=== PATIENT | female | born 1950 | race American Indian/Alaskan Native ===

== ENCOUNTER 2018-07-21 14:18 | Inpatient (IN) | payer MEDICARE ==
--- NOTE | 2018-07-21 17:04 | Emergency Department Report ---
ED General Adult HPI - General Chief complaint: Weakness Stated complaint: WEAKNESS Time Seen by Provider: 07/21/18 16:53 Source: patient Mode of arrival: Wheelchair Limitations: Physical Limitation, Other (patient is a poor historian) - History of Present Illness Initial comments: This is a 68-year-old female. The patient has a past medical history of hypertension, diabetes, and high cholesterol and stroke. The patient is brought to the hospital for generalized weakness and inability to walk. Apparently, the patient has not been able to walk for the past week as per her enclosed medical records. The patient has no recollection of this. She has no complaints. She therefore cannot describe exacerbating or relieving factors, radiation, or the qualitative nature of her symptoms. Patient's daughter stopped by the ER briefly, and did indicate that the patient has not been able to walk well for about the past week. -: days(s) Consistency: constant Improves with: none Worsens with: none Associated Symptoms: confusion, weakness - Related Data Home Medications Medication Instructions Recorded Confirmed Last Taken Amlodipine Besylate [Norvasc] 10 mg PO DAILY 04/12/18 04/12/18 Unknown AtorvaSTATin [Lipitor] 80 mg PO DAILY 04/12/18 04/12/18 Unknown Lisinopril [Zestril TAB] 40 mg PO QDAY 04/12/18 04/12/18 Unknown Pantoprazole Sodium 40 mg PO QAM 04/12/18 04/12/18 Unknown metFORMIN [Glucophage] 500 mg PO BID 04/12/18 04/12/18 Unknown Previous Rx's Medication Instructions Recorded Last Taken Type Clopidogrel [Plavix] 75 mg PO QDAY #30 tablet 04/18/18 Unknown Rx hydrALAZINE [Apresoline TAB] 10 mg PO Q8HR tablet 04/18/18 Unknown Rx Allergies Allergy/AdvReac Type Severity Reaction Status Date / Time No Known Allergies Allergy Verified 04/13/18 01:58 ED Review of Systems ROS: Stated complaint: WEAKNESS Other details as noted in HPI Comment: Unobtainable due to pts medical conditions ED Past Medical Hx - Past Medical History Previous Medical History?: Yes Hx Hypertension: Yes Hx CVA: Yes Hx Diabetes: Yes Hx GERD: Yes Hx Dementia: Yes - Surgical History Past Surgical History?: No Additional Surgical History: UNSURE - Social History Smoking Status: Unknown if ever smoked - Medications Home Medications: Home Medications Medication Instructions Recorded Confirmed Last Taken Type Amlodipine Besylate [Norvasc] 10 mg PO DAILY 04/12/18 04/12/18 Unknown History AtorvaSTATin [Lipitor] 80 mg PO DAILY 04/12/18 04/12/18 Unknown History Lisinopril [Zestril TAB] 40 mg PO QDAY 04/12/18 04/12/18 Unknown History Pantoprazole Sodium 40 mg PO QAM 04/12/18 04/12/18 Unknown History metFORMIN [Glucophage] 500 mg PO BID 04/12/18 04/12/18 Unknown History Clopidogrel [Plavix] 75 mg PO QDAY #30 tablet 04/18/18 Unknown Rx hydrALAZINE [Apresoline TAB] 10 mg PO Q8HR tablet 04/18/18 Unknown Rx ED Physical Exam - General Limitations: Physical Limitation, Other (patient is a poor historian. Patient has no recollection of why she is in the emergency department) General appearance: alert, in no apparent distress - Head Head exam: Present: atraumatic, normocephalic - Eye Eye exam: Present: normal appearance, EOMI. Absent: nystagmus - ENT ENT exam: Present: normal exam, normal orophraynx, mucous membranes moist, normal external ear exam - Neck Neck exam: Present: normal inspection, full ROM. Absent: tenderness, meningismus - Respiratory Respiratory exam: Present: normal lung sounds bilaterally. Absent: respiratory distress, chest wall tenderness - Cardiovascular Cardiovascular Exam: Present: regular rate, normal rhythm, normal heart sounds. Absent: bradycardia, tachycardia, irregular rhythm, systolic murmur, diastolic murmur, rubs, gallop - GI/Abdominal GI/Abdominal exam: Present: soft. Absent: distended, tenderness, guarding, rebound, rigid, pulsatile mass - Extremities Exam Extremities exam: Present: normal inspection, full ROM, normal capillary refill , other (2+ pulses noted in the bilateral upper, lower extremities. Compartments soft. No long bony tenderness. The pelvis is stable.). Absent: pedal edema, joint swelling, calf tenderness - Back Exam Back exam: Present: normal inspection, full ROM. Absent: tenderness, CVA tenderness (R), paraspinal tenderness, vertebral tenderness - Neurological Exam Neurological exam: Present: alert, other (Extraocular movements intact. Tongue midline. No facial droop. Facial sensation intact to light touch in the V1, V2 , V3 distribution bilaterally. 5 and 5 strength in 4 extremities.. Sensation is intact to light touch in 4 extremities.). Absent: abnormal gait (patient is unable to walk), motor sensory deficit - Psychiatric Psychiatric exam: Present: normal affect, normal mood - Skin Skin exam: Present: warm, dry, intact, normal color. Absent: rash ED Course Vital Signs 07/21/18 07/21/18 07/21/18 14:45 18:33 19:37 Temperature 98.7 F 98.1 F Pulse Rate 94 H 94 H Respiratory 18 17 18 Rate Blood Pressure 154/85 Blood Pressure 156/91 [Right] O2 Sat by Pulse 96 99 Oximetry - Reevaluation(s) Reevaluation #1: 07/21/18 19:39 Dr. England has accepted the patient to the medical service. ED Medical Decision Making - Lab Data Result diagrams: 07/21/18 17:13 07/21/18 17:13 Vital Signs 07/21/18 07/21/18 14:45 18:33 Temperature 98.7 F Pulse Rate 94 H Respiratory 18 17 Rate Blood Pressure 154/85 O2 Sat by Pulse 96 Oximetry Lab Results 07/21/18 07/21/18 07/21/18 Range/Units 17:13 17:13 17:13 WBC 10.2 (4.5-11.0) K/mm3 RBC 4.64 (3.65-5.03) M/mm3 Hgb 14.0 (10.1-14.3) gm/dl Hct 41.3 (30.3-42.9) % MCV 89 (79-97) fl MCH 30 (28-32) pg MCHC 34 (30-34) % RDW 14.2 (13.2-15.2) % Plt Count 178 (140-440) K/mm3 Sodium 138 (137-145) mmol/L Potassium 4.3 (3.6-5.0) mmol/L Chloride 103.5 (98-107) mmol/L Carbon Dioxide 19 L (22-30) mmol/L Anion Gap 20 mmol/L BUN 21 H (7-17) mg/dL Creatinine 0.6 L (0.7-1.2) mg/dL Estimated GFR > 60 ml/min BUN/Creatinine Ratio 35 % Glucose 201 H (65-100) mg/dL Calcium 8.9 (8.4-10.2) mg/dL Magnesium 1.90 (1.7-2.3) mg/dL Total Creatine Kinase 255 H (30-135) units/L Urine Color (Yellow) Urine Turbidity (Clear) Urine pH (5.0-7.0) Ur Specific [place] (1.003-1.030) Urine Protein (Negative) mg/dL Urine Glucose (UA) (Negative) mg/dL Urine Ketones (Negative) mg/dL Urine Blood (Negative) Urine Nitrite (Negative) Urine Bilirubin (Negative) Urine Urobilinogen (<2.0) mg/dL Ur Leukocyte Esterase (Negative) Urine WBC (Auto) (0.0-6.0) /HPF Urine RBC (Auto) (0.0-6.0) /HPF Urine Bacteria (Auto) (Negative) /HPF Urine WBC Clumps /HPF Urine Mucus /HPF 07/21/18 Range/Units 18:00 WBC (4.5-11.0) K/mm3 RBC (3.65-5.03) M/mm3 Hgb (10.1-14.3) gm/dl Hct (30.3-42.9) % MCV (79-97) fl MCH (28-32) pg MCHC (30-34) % RDW (13.2-15.2) % Plt Count (140-440) K/mm3 Sodium (137-145) mmol/L Potassium (3.6-5.0) mmol/L Chloride (98-107) mmol/L Carbon Dioxide (22-30) mmol/L Anion Gap mmol/L BUN (7-17) mg/dL Creatinine (0.7-1.2) mg/dL Estimated GFR ml/min BUN/Creatinine Ratio % Glucose (65-100) mg/dL Calcium (8.4-10.2) mg/dL Magnesium (1.7-2.3) mg/dL Total Creatine Kinase (30-135) units/L Urine Color Yellow (Yellow) Urine Turbidity Turbid (Clear) Urine pH 5.0 (5.0-7.0) Ur Specific [place] 1.021 (1.003-1.030) Urine Protein 100 mg/dl (Negative) mg/dL Urine Glucose (UA) Neg (Negative) mg/dL Urine Ketones Tr (Negative) mg/dL Urine Blood Mod (Negative) Urine Nitrite Pos (Negative) Urine Bilirubin Neg (Negative) Urine Urobilinogen < 2.0 (<2.0) mg/dL Ur Leukocyte Esterase Lg (Negative) Urine WBC (Auto) > 182.0 H (0.0-6.0) /HPF Urine RBC (Auto) 55.0 (0.0-6.0) /HPF Urine Bacteria (Auto) 2+ (Negative) /HPF Urine WBC Clumps 3+ /HPF Urine Mucus 3+ /HPF - Radiology Data Radiology results: report reviewed, image reviewed [facility] [address] [place] [address] Cat Scan Report Signed Patient: JODI COBURN MR#: [id number] : 1950 Acct:[id number] Age/Sex: 68 / F ADM Date: 07/21/18 Loc: ED Attending Dr: Ordering Physician: HUONG TORO MD Date of Service: 07/21/18 Procedure(s): CT head/brain wo con Accession Number(s): [id number] cc: HUONG TORO MD FINAL REPORT EXAM: CT HEAD/BRAIN WO CON HISTORY: weakness TECHNIQUE: 2.5 millimeter axial images from the skullbase to the vertex. Comparison: MRI brain dated April 14, [address] dated April 12, 2018. FINDINGS: The previously demonstrated acute infarcts in the left frontal, temporal, parietal occipital lobes on the study of April 14, 2018 are now chronic in appearance. Again noted are the chronic infarcts in the left basal ganglia and right cerebellum.. There has been interval development of decreased density in the right frontal lobe cortex and subcortical white matter in the parafalcine region and in the genu and anterior body of the corpus callosum. There appears to be a mild degree of mass effect on the adjacent brain suggestive of an acute or subacute infarct. There is no evidence of intracranial hemorrhage or significant mass effect. Ventricular size is concordant with the degree of atrophy. Again noted is the enlargement of the sella which is largely CSF filled. The visualized portions of the orbits, paranasal and mastoid sinuses are unremarkable. There is no evidence of fracture. IMPRESSION: 1. Interval development of low attenuation in the right frontal lobe cortex and subcortical white matter in the parafalcine region and in the genu and anterior body of the corpus callosum. This is consistent with the appearance of an infarct, possibly acute or subacute. MRI brain may be helpful for further evaluation. 2. Chronic infarct left frontal, temporal, parietal and occipital lobes, left basal ganglia and right cerebellum. Transcribed By: ED Dictated By: JAKE GARCIA MD Electronically Authenticated By: JAKE GARCIA MD Signed Date/Time: 07/21/18 9767 - Medical Decision Making Differential diagnosis, including but not limited to: Stroke, debility, urinary tract infection, deconditioning Assessment and plan: 68-year-old female with weakness and difficulty walking for one week. She has no indication for TPA as we do not have exact onset of symptoms. Furthermore, as symptoms by history have been present for greater than 24 hours, she would not benefit from emergent endovascular intervention, and to stay for not require emergent CT angiogram of the head and neck. A noncontrast CT scan of the brain suggested an acute to subacute infarct. Urinalysis suggested urinary tract infection. Patient will require admission to the hospital. Hospital physician was paged to arrange admission. Critical care attestation.: If time is entered above; I have spent that time in minutes in the direct care of this critically ill patient, excluding procedure time. ED Disposition Clinical Impression: CVA (cerebral vascular accident) Qualifiers: CVA mechanism: other Qualified Code(s): I63.8 - Other cerebral infarction UTI (urinary tract infection) Qualifiers: Urinary tract infection type: acute cystitis Hematuria presence: without hematuria Qualified Code(s): N30.00 - Acute cystitis without hematuria Disposition: OP ADMIT IP TO THIS HOSP Is pt being admited?: Yes Does the pt Need Aspirin: Yes Condition: Good Referrals: PRIMARY CARE, [Primary Care Provider] - 3-5 Days - Assessment Assessment Interval: Baseline - Level of Consciousness 1a. Level of Consciousness: not alert, arousable - LOC Questions 1b. LOC Questions: answers 1 question correctly - LOC Command 1c. LOC Commands: performs tasks correctly - Best Gaze 2. Best Gaze: normal - Visual 3. Visual: no visual loss - Facial Palsy 4. Facial Palsy: normal symmetrical movement - Motor Arm 5b. Motor Arm Right: no drift 5a. Motor Arm Left: no drift - Motor Leg 6a. Motor Leg Left: drift 6b. Motor Leg Right: drift - Limb Ataxia 7. Limb Ataxia: absent - Sensory 8. Sensory: normal - Best Language 9. Best Language: no aphasia - Dysarthria 10. Dysarthria: normal - Extinction and Inattention 11. Extinction/Inattention: no abnormality - Scoring Total Score: 4 Stroke Severity: Minor Stroke
[2018-07-21 17:40] LABS: Hematocrit 41.3 % (30.3-42.9); Mean Corpuscular HGB Conc 34 % (30-34); Mean Corpuscular Hemoglobin 30 pg (28-32); Mean Corpuscular Volume 89 fl (79-97); Platelet Count 178 K/mm3 (140-440); Red Blood Count 4.64 M/mm3 (3.65-5.03); Red Cell Distribution Width 14.2 % (13.2-15.2)
--- NOTE | 2018-07-21 17:42 | Cat Scan Report ---
FINAL REPORT EXAM: CT HEAD/BRAIN WO CON HISTORY: weakness TECHNIQUE: 2.5 millimeter axial images from the skullbase to the vertex. Comparison: MRI brain dated April 14, [address] dated April 12, 2018. FINDINGS: The previously demonstrated acute infarcts in the left frontal, temporal, parietal occipital lobes on the study of April 14, 2018 are now chronic in appearance. Again noted are the chronic infarcts in the left basal ganglia and right cerebellum.. There has been interval development of decreased density in the right frontal lobe cortex and subcortical white matter in the parafalcine region and in the genu and anterior body of the corpus callosum. There appears to be a mild degree of mass effect on the adjacent brain suggestive of an acute or subacute infarct. There is no evidence of intracranial hemorrhage or significant mass effect. Ventricular size is concordant with the degree of atrophy. Again noted is the enlargement of the sella which is largely CSF filled. The visualized portions of the orbits, paranasal and mastoid sinuses are unremarkable. There is no evidence of fracture. IMPRESSION: 1. Interval development of low attenuation in the right frontal lobe cortex and subcortical white matter in the parafalcine region and in the genu and anterior body of the corpus callosum. This is consistent with the appearance of an infarct, possibly acute or subacute. MRI brain may be helpful for further evaluation. 2. Chronic infarct left frontal, temporal, parietal and occipital lobes, left basal ganglia and right cerebellum.
[2018-07-21 17:47] LABS: BUN/Creatinine Ratio 35; Blood Urea Nitrogen 21 mg/dL (7-17); Calcium 8.9 mg/dL (8.4-10.2); Hemolysis Index 49
[2018-07-21] MEDS ORDERED: BABY ASPIRIN PO ONE (18:17)
[2018-07-21 18:37] LABS: Bacteria,Urine 2+ /HPF (Negative); Bilirubin,Urine NEG (Negative); Blood,Urine MOD (Negative); Mucus,Urine 3+ /HPF; Urobilinogen,Urine < 2.0 mg/dL (<2.0)
[2018-07-21 18:38] LABS: Color,Urine Yellow (Yellow); WBC,Urine > 182.0 /HPF (0.0-6.0)
[2018-07-21] MEDS ORDERED: ROCEPHIN/NS 1 GM/50 ML 1 GM/50 ML BAG IV ONE (19:00)
[2018-07-21] MEDS ORDERED: D50W (25GM) Syringe IV PRN (23:41)
[2018-07-22] MEDS: HumaLOG SUB-Q SCH ×4 (00:14→19:45)
[2018-07-22] MEDS ORDERED: HumuLIN R ONE (00:14)
[2018-07-22] MEDS ORDERED: HumaLOG SUB-Q ONE (00:22)
[2018-07-22] MEDS ORDERED: TYLENOL PR PRN (06:08)
[2018-07-22] MEDS ORDERED: ZOFRAN IV PRN (06:09)
[2018-07-22] MEDS: ROCEPHIN/NS 1 GM/50 ML 1 GM/50 ML BAG IV SCH (15:40)
[2018-07-22] MEDS: ASPIRIN PO SCH (15:40)
--- NOTE | 2018-07-22 16:35 | History and Physical Report ---
CHIEF COMPLAINT: Weakness and other complaint includes difficulty in ambulation and walking. HISTORY OF PRESENT ILLNESS: The patient is a 68-year-old female who was noted by the daughter to be feeling weak and unable to ambulate for some days. The patient has past history of cerebrovascular accident and has difficulty with communicating or remembering things and the patient does not remember how long she has been unable to ambulate and denied history of chest pain, denied history of shortness of breath, nausea or vomiting or fever and presented with weakness and inability to ambulate. PAST MEDICAL HISTORY: Pertinent for hypertension, cerebrovascular accident, diabetes mellitus, gastroesophageal reflux disease, dementia. PAST SURGICAL HISTORY: Unremarkable. FAMILY HISTORY: Noncontributory. SOCIAL HISTORY: The patient does not smoke, does not drink alcohol, and does not use illicit drugs. MEDICATIONS: The patient is on Norvasc 10 mg daily, Lipitor 80 mg by mouth daily, lisinopril 40 mg daily, pantoprazole 40 mg in the morning, metformin 500 mg twice daily, Plavix 75 mg by mouth daily, hydralazine 10 mg by mouth every 8 hours. ALLERGIES: There are no known drug allergies. REVIEW OF SYSTEMS: CONSTITUTIONAL: There is no fever, no chills, no diaphoresis. HEENT: There is no headache or sore throat. CARDIOVASCULAR SYSTEM: There is no chest pain or orthopnea. RESPIRATORY SYSTEM: There is no shortness of breath or cough. GASTROINTESTINAL SYSTEM: There is no nausea, no vomiting, no abdominal pain, diarrhea or constipation. NEUROLOGICAL SYSTEM: Generalized weakness noted. Inability to ambulate or walk noted. There is no altered mental status on top of the patient's baseline dementia and there is no numbness or dizziness. MUSCULOSKELETAL SYSTEM: There is no joint pain or swelling. DERMATOLOGICAL SYSTEM: There is no skin rash or itching. GENITOURINARY SYSTEM: There is no dysuria, hematuria, or flank pain. Rest of system review is normal. PHYSICAL EXAMINATION: GENERAL: At the time of examination, the patient was found to be alert, oriented to person only, and not in acute distress. VITAL SIGNS: Vital signs at the time of presentation show temperature of 98.7 degrees Fahrenheit, pulse of 94, respiration 18, blood pressure 154/85, O2 sat of 96% on room air. HEENT: Examination showed pupils to be equal, round, reactive to light and accommodation. Extraocular muscles are intact. NECK: Supple with no JVD or carotid bruit. CARDIOVASCULAR SYSTEM: Showed normal first and second heart sounds with no gallops or murmurs. RESPIRATORY SYSTEM: Showed good air entry on both sides of the lungs with no abnormal breath sounds. GASTROINTESTINAL SYSTEM: Showed abdomen to be full, soft, nontender with no organomegaly or rigidity. NEUROLOGIC: Examination shows the patient to be oriented to person only with generalized weakness and reduced muscle strength in both lower limbs with muscle strength of about 3/6 on both lower extremities and there is no sensory loss. MUSCULOSKELETAL SYSTEM: Show no joint swelling or tenderness. DERMATOLOGICAL SYSTEM: Show no skin rash. GENITOURINARY SYSTEM: Showing no costovertebral angle tenderness. PERTINENT LABORATORY AND IMAGING STUDIES: The patient has CT of the head without contrast done that shows interval development of low attenuation in the right frontal lobe contains a subcortical white matter in the parafacial region and anterior body of the corpus callosum and the radiologist said that this is consistent with appearance of an infarct, possibly acute or subacute and recommended that MRI of the brain will be helpful for further evaluation. There is also finding of chronic infarct in the left frontal, temporal, parietal and occipital lobes, left basal ganglia and right cerebellum. The patient's lab result shows CBC which was unremarkable. Chemistries shows low CO2 of 19 with unremarkable renal function test, blood glucose level was slightly elevated with a value of 201 and the patient's total CPK was high with a value of 265. The patient's urinalysis shows elevated urine WBC of 182, and large urine leukocyte esterase with 2+ bacteria and urine RBC of 55. DIAGNOSES: 1. Weakness. 2. Inability to ambulate. 3. Abnormal CT of the head showing acute/subacute Basal Ganglia infarct. 4. Urinary tract infection. CARE OF PLAN: 1. The patient will be admitted to telemetry. 2. The patient will have MRI of the brain without contrast done this morning. 3. The patient will have bilateral carotid Doppler done this morning and 2D echo done this morning. 4. The patient will have Neurology consult with Jose Roberto Cardona MD, for management of difficulty in ambulation with weakness and abnormal CT head findings. 5. The patient will have physical therapy consult for evaluation and treatment and will also have speech therapy consult for evaluation and treatment. 6. The patient will remain n.p.o. until she passes the swallow test. 7. The patient will be on IV ceftriaxone 1 gram daily for treatment of urinary tract infection. 8. The patient will be on Tylenol rectally 650 mg every 4 hours for fever and headache and will be on IV Zofran 4 mg every 8 hours as needed for nausea and vomiting. 9. The patient will be on Accu-Chek q. 6 hours followed by low-dose sliding scale using regular insulin coverage. 10. The patient will be on aspirin 325 mg by mouth daily when the patient starts taking orally. JOB# [id number] OCN/NTS MTDD
--- NOTE | 2018-07-22 16:36 | Progress Note ---
Assessment and Plan Assessment and plan: Patient is a 68-year-old female with past medical history of hypertension diabetes mellitus hypercholesterolemia and previous stroke. She is discharged from another hospital and had been at the nursing facility for the past week when she suddenly developed generalized weakness and inability to walk according to the facility staff. Further information is not available based on ER documentation the patient's daughter has stopped by the ER briefly and indicated that patient had been unable to walk for the past week well. Generalized weakness with inability to walk likely consistent with acute/ subacute stroke Acute/subacute CVA Acute cystitis secondary to gram-negative rods Metabolic acidosis HTN DM ?Underlying dementia Plan -Continue CVA protocol, asa, statin, fall precautions, carotid Doppler -Await MRI BRAIN, awaiting son to answer questioner -continue empiric abx and await culture ID/Sensitivity -continue current home meds -No family present at bedside -DVT/GI prophy History Interval history: Patient seen and examined this morning she is awake still relatively confused but denies any chest pain nausea vomiting she's not sure why she is in the hospital. When asked about the growth on her left neck area she states that this is fat growth and has been present for about 4-6 months ago. No other adverse events reported by nursing staff Is on His Way down from [place]. He Suspected to Be Gained the Morning. Hospitalist Physical - Physical exam Narrative exam: VITAL SIGNS: Reviewed. GENERAL: The patient appeared well nourished and normally developed. Vital signs as documented. HEAD: No signs of head trauma. EYES: Pupils are equal. Extraocular motions intact. EARS: Hearing grossly intact. MOUTH: Oropharynx is normal. NECK: No adenopathy, no JVD. CHEST: Chest with clear breath sounds bilaterally. No wheezes, rales, or rhonchi. CARDIAC: Regular rate and rhythm. S1 and S2, without murmurs, gallops, or rubs. VASCULAR: No Edema. Peripheral pulses normal and equal in all extremities. ABDOMEN: Soft, without detectable tenderness. No sign of distention. No rebound or guarding, and no masses palpated. Bowel Sounds normal. MUSCULOSKELETAL: Good range of motion of all major joints. Extremities without clubbing, cyanosis or edema. NEUROLOGIC EXAM: Alert and oriented x 1. No focal sensory or strength deficits. Speech normal. Follows commands. PSYCHIATRIC: Mood normal. SKIN: No rash or lesions. Excessive outpouching on the left neck area. - Constitutional Vitals: Temp Pulse Resp BP Pulse Ox 98.4 F 90 16 156/85 96 07/22/18 05:49 07/22/18 00:39 07/22/18 05:49 07/22/18 05:49 07/22/18 00:39 Results - Labs CBC & Chem 7: 07/21/18 17:13 07/21/18 17:13 Labs: Laboratory Last Values WBC 10.2 K/mm3 (4.5-11.0) 07/21/18 17:13 RBC 4.64 M/mm3 (3.65-5.03) 07/21/18 17:13 Hgb 14.0 gm/dl (10.1-14.3) 07/21/18 17:13 Hct 41.3 % (30.3-42.9) 07/21/18 17:13 MCV 89 fl (79-97) 07/21/18 17:13 MCH 30 pg (28-32) 07/21/18 17:13 MCHC 34 % (30-34) 07/21/18 17:13 RDW 14.2 % (13.2-15.2) 07/21/18 17:13 Plt Count 178 K/mm3 (140-440) 07/21/18 17:13 Sodium 138 mmol/L (137-145) 07/21/18 17:13 Potassium 4.3 mmol/L (3.6-5.0) 07/21/18 17:13 Chloride 103.5 mmol/L (98-107) 07/21/18 17:13 Carbon Dioxide 19 mmol/L (22-30) L 07/21/18 17:13 Anion Gap 20 mmol/L 07/21/18 17:13 BUN 21 mg/dL (7-17) H 07/21/18 17:13 Creatinine 0.6 mg/dL (0.7-1.2) L 07/21/18 17:13 Estimated GFR > 60 ml/min 07/21/18 17:13 BUN/Creatinine Ratio 35 % 07/21/18 17:13 Glucose 201 mg/dL (65-100) H 07/21/18 17:13 POC Glucose 130 (70-105) H 07/22/18 14:39 Calcium 8.9 mg/dL (8.4-10.2) 07/21/18 17:13 Magnesium 1.90 mg/dL (1.7-2.3) 07/21/18 17:13 Total Creatine Kinase 255 units/L (30-135) H 07/21/18 17:13 Urine Color Yellow (Yellow) 07/21/18 18:00 Urine Turbidity Turbid (Clear) 07/21/18 18:00 Urine pH 5.0 (5.0-7.0) 07/21/18 18:00 Ur Specific [place] 1.021 (1.003-1.030) 07/21/18 18:00 Urine Protein 100 mg/dl mg/dL (Negative) 07/21/18 18:00 Urine Glucose (UA) Neg mg/dL (Negative) 07/21/18 18:00 Urine Ketones Tr mg/dL (Negative) 07/21/18 18:00 Urine Blood Mod (Negative) 07/21/18 18:00 Urine Nitrite Pos (Negative) 07/21/18 18:00 Urine Bilirubin Neg (Negative) 07/21/18 18:00 Urine Urobilinogen < 2.0 mg/dL (<2.0) 07/21/18 18:00 Ur Leukocyte Esterase Lg (Negative) 07/21/18 18:00 Urine WBC (Auto) > 182.0 /HPF (0.0-6.0) H 07/21/18 18:00 Urine RBC (Auto) 55.0 /HPF (0.0-6.0) 07/21/18 18:00 Urine Bacteria (Auto) 2+ /HPF (Negative) 07/21/18 18:00 Urine WBC Clumps 3+ /HPF 07/21/18 18:00 Urine Mucus 3+ /HPF 07/21/18 18:00 - Imaging and Cardiology CT Scan - head: image reviewed (cva)
--- NOTE | 2018-07-22 21:45 | Consultation ---
NEUROLOGICAL CONSULTATION REASON FOR CONSULTATION: Weakness, possible stroke. HISTORY OF PRESENT ILLNESS: Obtained from the medical record and from the ER physician. There is no history right now. The patient does not know anything. I spoke also with the nurse, but she also could not give me anything. She still has to talk to the relatives. This lady is a 68-year-old black female. She was brought to the hospital because of having generalized weakness and inability to walk. This has been going on for the last week. The patient never said anything. Even the daughter went to the ER just said briefly that she could not walk for the last week. This is basically what we can get. PAST MEDICAL HISTORY: Hypertension, possible stroke, diabetes, GERD, and dementia. PAST SURGICAL HISTORY: Not sure. SOCIAL HISTORY: Unknown. FAMILY HISTORY: Unknown. MEDICATIONS: At home include amlodipine 10 mg daily, atorvastatin 80 mg daily, lisinopril 40 mg daily, pantoprazole 40 mg daily, metformin 500 mg b.i.d. The patient also takes clopidogrel 75 mg daily, hydralazine 10 mg daily. ALLERGIES: None is known. PHYSICAL EXAMINATION: GENERAL: Revealed a well-developed, moderately obese female who is lying quietly in bed. She is comfortable. VITAL SIGNS: Her temperature 98.7, pulse rate 94, respiration 18 and regular, blood pressure 154/85, oxygen saturation 96%. HEENT: Mouth and throat examination unremarkable. No intracranial or intraorbital bruits. NECK: Short and supple. No carotid bruit. HEART: Regular rhythm, somewhat tachycardic. LUNGS: Decreased breath sounds. ABDOMEN: Obese, difficult to palpate. EXTREMITIES: Appeared externally normal. Minimal pitting edema. NEUROLOGIC: The patient is awake, alert. Mental status, I believe she is demented. She does not know what is going on. She does not where she is at. Does not know the date, etc. Cranial nerve examination showed by finger counting a dense right-sided homonymous hemianopsia. Very subtle right-sided facial weakness. Tongue was midline. Motor examination: There is about a 3-1/2 to 4/5 strength in the right upper extremity, right lower extremity about 4/5. Sensation, she said is intact. She could feel it. Coordination, difficult to follow commands. Reflexes symmetrical. No Babinski. LABORATORY DATA: Showed it to be normal except for high glucose and high CPK. Urine was normal. CT scan of the brain showed interval development of low attenuation in the right frontal lobe cortex and subcortical white matter in the parafalcine region and in the genu and anterior body of the corpus callosum. It could be an infarct. Chronic infarct in the left frontotemporal parietal occipital lobes, left basal ganglia and right cerebellum. INITIAL CLINICAL IMPRESSION: 1. Possibility of stroke or cerebrovascular accident. On examination, left hemisphere localization. 2. CT scan finding of low attenuation in the right frontal cortex subcortical white matter, could be a recent stroke. This patient most likely has multiple stroke from the past also, and even current. From the history, this symptoms have been going on for the last week. RECOMMENDATION: 1. MRI of the brain. 2. Medical management. Control of blood sugar and hypertension. 2D echo, carotid ultrasound. Antiplatelet. Sixty minutes involved in the history and physical examination and gathering information, 50% involved in coordination of care. I will be leaving the care of this patient to the next week neurologist coming on. I am ending my locum terms today. Today, the hospitalist is to attend the medical management. JOB# [id number] NIRMALA/HOLLY
[2018-07-23] MEDS: HumaLOG SUB-Q SCH ×4 (01:01→18:23)
[2018-07-23] MEDS: ASPIRIN PO SCH (10:34)
[2018-07-23] MEDS: ROCEPHIN/NS 1 GM/50 ML 1 GM/50 ML BAG IV SCH (10:34)
--- NOTE | 2018-07-23 13:50 | Progress Note ---
Assessment and Plan Assessment and plan: Patient is a 68-year-old female with past medical history of hypertension diabetes mellitus hypercholesterolemia and previous stroke. She is discharged from another hospital and had been at the nursing facility for the past week when she suddenly developed generalized weakness and inability to walk according to the facility staff. Further information is not available based on ER documentation the patient's daughter has stopped by the ER briefly and indicated that patient had been unable to walk for the past week well. Generalized weakness with inability to walk likely consistent with acute/ subacute stroke Acute/subacute CVA Acute cystitis secondary to gram-negative rods Metabolic acidosis HTN DM ?Underlying dementia Plan -Continue CVA protocol, asa, statin, fall precautions, carotid Doppler -Await MRI BRAIN, awaiting son to arrive and answer questioner -continue empiric abx and await culture ID/Sensitivity -continue current home meds -No family present at bedside -DVT/GI prophy Discussed with nursing staff History Interval history: Patient seen and examined this morning, Still with some confusion. no acute distress. Hospitalist Physical - Physical exam Narrative exam: VITAL SIGNS: Reviewed. GENERAL: The patient appeared well nourished and normally developed. Vital signs as documented. HEAD: No signs of head trauma. EYES: Pupils are equal. Extraocular motions intact. EARS: Hearing grossly intact. MOUTH: Oropharynx is normal. NECK: No adenopathy, no JVD. CHEST: Chest with clear breath sounds bilaterally. No wheezes, rales, or rhonchi. CARDIAC: Regular rate and rhythm. S1 and S2, without murmurs, gallops, or rubs. VASCULAR: No Edema. Peripheral pulses normal and equal in all extremities. ABDOMEN: Soft, without detectable tenderness. No sign of distention. No rebound or guarding, and no masses palpated. Bowel Sounds normal. MUSCULOSKELETAL: Good range of motion of all major joints. Extremities without clubbing, cyanosis or edema. NEUROLOGIC EXAM: Alert and oriented x 1. No focal sensory or strength deficits. Speech normal. Follows commands. PSYCHIATRIC: Mood normal. SKIN: No rash or lesions. Excessive outpouching on the left neck area. - Constitutional Vitals: Temp Pulse Resp BP Pulse Ox 98.8 F 99 H 16 159/86 100 07/23/18 12:07/23/18 12:07/23/18 12:07/23/18 12:07/23/18 12:02 Results - Labs CBC & Chem 7: 07/21/18 17:13 07/21/18 17:13 Labs: Laboratory Last Values WBC 10.2 K/mm3 (4.5-11.0) 07/21/18 17:13 RBC 4.64 M/mm3 (3.65-5.03) 07/21/18 17:13 Hgb 14.0 gm/dl (10.1-14.3) 07/21/18 17:13 Hct 41.3 % (30.3-42.9) 07/21/18 17:13 MCV 89 fl (79-97) 07/21/18 17:13 MCH 30 pg (28-32) 07/21/18 17:13 MCHC 34 % (30-34) 07/21/18 17:13 RDW 14.2 % (13.2-15.2) 07/21/18 17:13 Plt Count 178 K/mm3 (140-440) 07/21/18 17:13 Sodium 138 mmol/L (137-145) 07/21/18 17:13 Potassium 4.3 mmol/L (3.6-5.0) 07/21/18 17:13 Chloride 103.5 mmol/L (98-107) 07/21/18 17:13 Carbon Dioxide 19 mmol/L (22-30) L 07/21/18 17:13 Anion Gap 20 mmol/L 07/21/18 17:13 BUN 21 mg/dL (7-17) H 07/21/18 17:13 Creatinine 0.6 mg/dL (0.7-1.2) L 07/21/18 17:13 Estimated GFR > 60 ml/min 07/21/18 17:13 BUN/Creatinine Ratio 35 % 07/21/18 17:13 Glucose 201 mg/dL (65-100) H 07/21/18 17:13 POC Glucose 232 (70-105) H 07/23/18 11:57 Calcium 8.9 mg/dL (8.4-10.2) 07/21/18 17:13 Magnesium 1.90 mg/dL (1.7-2.3) 07/21/18 17:13 Total Creatine Kinase 255 units/L (30-135) H 07/21/18 17:13 Urine Color Yellow (Yellow) 07/21/18 18:00 Urine Turbidity Turbid (Clear) 07/21/18 18:00 Urine pH 5.0 (5.0-7.0) 07/21/18 18:00 Ur Specific [place] 1.021 (1.003-1.030) 07/21/18 18:00 Urine Protein 100 mg/dl mg/dL (Negative) 07/21/18 18:00 Urine Glucose (UA) Neg mg/dL (Negative) 07/21/18 18:00 Urine Ketones Tr mg/dL (Negative) 07/21/18 18:00 Urine Blood Mod (Negative) 07/21/18 18:00 Urine Nitrite Pos (Negative) 07/21/18 18:00 Urine Bilirubin Neg (Negative) 07/21/18 18:00 Urine Urobilinogen < 2.0 mg/dL (<2.0) 07/21/18 18:00 Ur Leukocyte Esterase Lg (Negative) 07/21/18 18:00 Urine WBC (Auto) > 182.0 /HPF (0.0-6.0) H 07/21/18 18:00 Urine RBC (Auto) 55.0 /HPF (0.0-6.0) 07/21/18 18:00 Urine Bacteria (Auto) 2+ /HPF (Negative) 07/21/18 18:00 Urine WBC Clumps 3+ /HPF 07/21/18 18:00 Urine Mucus 3+ /HPF 07/21/18 18:00
[2018-07-24] MEDS: HumaLOG SUB-Q SCH ×4 (01:11→17:32)
[2018-07-24 10:04] LABS: Hematocrit 40.9 % (30.3-42.9); Hemoglobin 14.1 gm/dl (10.1-14.3); Mean Corpuscular HGB Conc 35 % (30-34); Mean Corpuscular Hemoglobin 30 pg (28-32); Mean Corpuscular Volume 88 fl (79-97); Platelet Count 207 K/mm3 (140-440); Red Blood Count 4.67 M/mm3 (3.65-5.03); Red Cell Distribution Width 13.6 % (13.2-15.2)
[2018-07-24 10:24] LABS: BUN/Creatinine Ratio 36; Blood Urea Nitrogen 18 mg/dL (7-17); Calcium 8.8 mg/dL (8.4-10.2); Hemolysis Index 19
--- NOTE | 2018-07-24 12:11 | Progress Note ---
Assessment and Plan Assessment and plan: Patient is a 68-year-old female with past medical history of hypertension diabetes mellitus hypercholesterolemia and previous stroke. She is discharged from another hospital and had been at the nursing facility for the past week when she suddenly developed generalized weakness and inability to walk according to the facility staff. Further information is not available based on ER documentation the patient's daughter has stopped by the ER briefly and indicated that patient had been unable to walk for the past week well. Generalized weakness with inability to walk likely consistent with acute/ subacute stroke Acute/subacute CVA Acute cystitis secondary to ECOLI ESBL Metabolic acidosis HTN DM ?Underlying dementia Plan -Continue CVA protocol, asa, statin, fall precautions, carotid Doppler -Change abx to merrem. Consult ID -Contact isolation -Await MRI BRAIN, awaiting son to arrive and answer questioner -continue current home meds -No family present at bedside -DVT/GI prophy Discussed with nursing staff History Interval history: Patient seen and examined this morning, Resting comfortably. no clinical change Hospitalist Physical - Physical exam Narrative exam: VITAL SIGNS: Reviewed. GENERAL: The patient appeared well nourished and normally developed. Vital signs as documented. HEAD: No signs of head trauma. EYES: Pupils are equal. Extraocular motions intact. EARS: Hearing grossly intact. MOUTH: Oropharynx is normal. NECK: No adenopathy, no JVD. CHEST: Chest with clear breath sounds bilaterally. No wheezes, rales, or rhonchi. CARDIAC: Regular rate and rhythm. S1 and S2, without murmurs, gallops, or rubs. VASCULAR: No Edema. Peripheral pulses normal and equal in all extremities. ABDOMEN: Soft, without detectable tenderness. No sign of distention. No rebound or guarding, and no masses palpated. Bowel Sounds normal. MUSCULOSKELETAL: Good range of motion of all major joints. Extremities without clubbing, cyanosis or edema. NEUROLOGIC EXAM: Alert and oriented x 1. No focal sensory or strength deficits. Speech normal. Follows commands. PSYCHIATRIC: Mood normal. SKIN: No rash or lesions. Excessive outpouching on the left neck area. - Constitutional Vitals: Temp Pulse Resp BP Pulse Ox 98.5 F 95 H 20 149/88 96 07/24/18 06:02 07/24/18 06:02 07/24/18 06:02 07/24/18 06:02 07/24/18 06:02 Results - Labs CBC & Chem 7: 07/24/18 08:12 07/24/18 08:12 Labs: Laboratory Last Values WBC 7.7 K/mm3 (4.5-11.0) 07/24/18 08:12 RBC 4.67 M/mm3 (3.65-5.03) 07/24/18 08:12 Hgb 14.1 gm/dl (10.1-14.3) 07/24/18 08:12 Hct 40.9 % (30.3-42.9) 07/24/18 08:12 MCV 88 fl (79-97) 07/24/18 08:12 MCH 30 pg (28-32) 07/24/18 08:12 MCHC 35 % (30-34) H 07/24/18 08:12 RDW 13.6 % (13.2-15.2) 07/24/18 08:12 Plt Count 207 K/mm3 (140-440) 07/24/18 08:12 Sodium 141 mmol/L (137-145) 07/24/18 08:12 Potassium 4.3 mmol/L (3.6-5.0) 07/24/18 08:12 Chloride 105.0 mmol/L (98-107) 07/24/18 08:12 Carbon Dioxide 19 mmol/L (22-30) L 07/24/18 08:12 Anion Gap 21 mmol/L 07/24/18 08:12 BUN 18 mg/dL (7-17) H 07/24/18 08:12 Creatinine 0.5 mg/dL (0.7-1.2) L 07/24/18 08:12 Estimated GFR > 60 ml/min 07/24/18 08:12 BUN/Creatinine Ratio 36 % 07/24/18 08:12 Glucose 150 mg/dL (65-100) H 07/24/18 08:12 POC Glucose 274 (70-105) H 07/24/18 11:48 Calcium 8.8 mg/dL (8.4-10.2) 07/24/18 08:12 Magnesium 1.90 mg/dL (1.7-2.3) 07/21/18 17:13 Total Creatine Kinase 255 units/L (30-135) H 07/21/18 17:13 Urine Color Yellow (Yellow) 07/21/18 18:00 Urine Turbidity Turbid (Clear) 07/21/18 18:00 Urine pH 5.0 (5.0-7.0) 07/21/18 18:00 Ur Specific [place] 1.021 (1.003-1.030) 07/21/18 18:00 Urine Protein 100 mg/dl mg/dL (Negative) 07/21/18 18:00 Urine Glucose (UA) Neg mg/dL (Negative) 07/21/18 18: Urine Ketones Tr mg/dL (Negative) 07/21/18 18:00 Urine Blood Mod (Negative) 07/21/18 18:00 Urine Nitrite Pos (Negative) 07/21/18 18:00 Urine Bilirubin Neg (Negative) 07/21/18 18: Urine Urobilinogen < 2.0 mg/dL (<2.0) 07/21/18 18:00 Ur Leukocyte Esterase Lg (Negative) 07/21/18 18:00 Urine WBC (Auto) > 182.0 /HPF (0.0-6.0) H 07/21/18 18:00 Urine RBC (Auto) 55.0 /HPF (0.0-6.0) 07/21/18 18:00 Urine Bacteria (Auto) 2+ /HPF (Negative) 07/21/18 18:00 Urine WBC Clumps 3+ /HPF 07/21/18 18:00 Urine Mucus 3+ /HPF 07/21/18 18:00
[2018-07-24] MEDS: ROCEPHIN/NS 1 GM/50 ML 1 GM/50 ML BAG IV SCH (12:19)
[2018-07-24] MEDS: ASPIRIN PO SCH (12:31)
[2018-07-24] MEDS: MERREM/NS 500 MG/50 ML 500 MG/50 ML BAG IV SCH ×2 (12:31→17:52)
--- NOTE | 2018-07-24 14:36 | Consultation ---
History of Present Illness - Reason for Consult Consult date: 07/24/18 ESBL E coli UTI Requesting physician: DAMEON ABDULLAHI - History of Present Illness 68 y/o female with history of hypertension, diabetes, HLP and stroke, admitted on 07/21/18 due to generalized weakness and inability to walk for unknown duration. Apparently, the patient has not been able to walk for the past week as per her enclosed medical records. The patient has no recollection of this. She is confused. Details are unclear patient is unable of providing a history. In the ED, temp 98.7, HR 94, R 18, BP 154/85. WBC 10.2. Hg 14. Plat 178. Creat 0.6. CK 255. UA wbc 182, large LE. Microbiology: Blood cultures: Urine cultures: 07/21 ESBL E coli Current Antimicrobials: meropenem Previous Antimicrobials: Past History Past Medical History: diabetes, hypertension, hyperlipidemia Social history: no significant social history Family history: no significant family history Medications and Allergies Allergies Allergy/AdvReac Type Severity Reaction Status Date / Time No Known Allergies Allergy Verified 04/13/18 01:58 Home Medications Medication Instructions Recorded Confirmed Last Taken Type Amlodipine Besylate [Norvasc] 10 mg PO DAILY 04/12/18 07/23/18 Unknown History AtorvaSTATin [Lipitor] 80 mg PO DAILY 04/12/18 07/23/18 Unknown History metFORMIN [Glucophage] 500 mg PO BID 04/12/18 07/23/18 Unknown History hydrALAZINE [Apresoline TAB] 10 mg PO Q8HR tablet 04/18/18 07/23/18 Unknown Rx ISOSORBIDE MONOnitrate [Imdur ER] 30 mg PO DAILY 07/23/18 07/23/18 Unknown History levETIRAcetam [Roweepra] 500 mg PO BID 07/23/18 07/23/18 Unknown History Active Meds: Active Medications Acetaminophen (Tylenol) 650 mg SD Q4H PRN PRN Reason: Fever >101 Aspirin (Aspirin) 325 mg PO QDAY [facility] Last Admin: 07/24/18 12:31 Dose: 325 mg Atorvastatin Calcium (Lipitor) 40 mg PO QHS [facility] Last Admin: 07/23/18 21:33 Dose: 40 mg Dextrose (D50w (25gm) Syringe) 50 ml IV PRN PRN PRN Reason: Hypoglycemia Meropenem (Merrem/Ns 500 Mg/50 Ml) 500 mg in 50 mls @ 50 mls/hr IV Q6HR [facility] Last Admin: 07/24/18 12:31 Dose: 50 mls/hr Insulin Human Lispro (Humalog) 0 unit SUB-Q Q6HR [facility]; Protocol Last Admin: 07/24/18 12:32 Dose: 3 unit Ondansetron HCl (Zofran) 4 mg IV Q8H PRN PRN Reason: Nausea And Vomiting Physical Examination - Physical Exam Narrative exam: General appearance: Alert in NAD, non conversant Eyes: anicteric sclerae, moist conjunctivae; no lid-lag; PERRLA HENT: Atraumatic; oropharynx clear. Neck: Trachea midline; supple, no thyromegaly or lymphadenopathy Lungs: CTA, with normal respiratory effort and no intercostal retractions CV: RRR Abdomen: Soft, non-tender; no masses or hepatosplenomegaly Extremities: No peripheral edema or extremity lymphadenopathy Skin: Normal temperature, turgor and texture; no rash, ulcers or subcutaneous nodules Psych: Appropriate affect, confused. Neuro: alert and orientedx1 Moving all extermities Lines: No CVL / PICC - Constitutional Vitals: Vital Signs Temp Pulse Resp BP Pulse Ox 98.4 F 102 H 20 153/92 98 07/24/18 13:06 07/24/18 13:06 07/24/18 13:06 07/24/18 13:06 07/24/18 13:06 Temperature -Last 24 Hours Temperature 98.4 F Temperature 98.5 F Temperature 99.0 F Temperature 99.2 F Results - Labs CBC & Chem 7: 07/24/18 08:12 07/24/18 08:12 Labs: Abnormal lab results 07/23/18 07/24/18 07/24/18 Range/Units 18:07 00:20 06:03 MCHC (30-34) % Carbon Dioxide (22-30) mmol/L BUN (7-17) mg/dL Creatinine (0.7-1.2) mg/dL Glucose (65-100) mg/dL POC Glucose 178 H 146 H 160 H (70-105) 07/24/18 07/24/18 07/24/18 Range/Units 08:12 08:12 11:48 MCHC 35 H (30-34) % Carbon Dioxide 19 L (22-30) mmol/L BUN 18 H (7-17) mg/dL Creatinine 0.5 L (0.7-1.2) mg/dL Glucose 150 H (65-100) mg/dL POC Glucose 274 H (70-105) Assessment and Plan Assessment: 1) Complicated UTI: due to ESBL E coli 2) Acute encephalopathy 3)Acute/subacute CVA 4)DM 5)HTN Plan: -continue meropenem -renal US -if US is normal upon discharge will do fosfomycin 3 g PO q3day x 3 doses -if US is shows hydro or stones will do IV ertapenem Thank you for your consultation, will follow up with you. Mary Jane Stoddard MD Infectious Diseases Specialist [facility] ([facility]) M [phone] O [phone]
--- NOTE | 2018-07-24 16:41 | Ultrasound Report ---
FINAL REPORT EXAM: US RENAL BILAT HISTORY: eval for hydro or stones TECHNIQUE: Renal ultrasound. PRIORS: None currently available. FINDINGS: RIGHT KIDNEY: 12.2 x 4.8 x 5.3 cm. Cortex measures 1.5 cm. Normal echotexture. No hydronephrosis, stones, or lesions. LEFT KIDNEY: 10.6 x 5.4 x 5.2 cm. Cortex measures 1.2 cm. Normal echotexture. No hydronephrosis, stones, or lesions. BLADDER: Images of the bladder are unremarkable. Splenic echogenic foci may represent calcific granulomas and was incidentally noted. IMPRESSION: Unremarkable.
[2018-07-25] MEDS: MERREM/NS 500 MG/50 ML 500 MG/50 ML BAG IV SCH ×4 (00:09→18:09)
[2018-07-25] MEDS: HumaLOG SUB-Q SCH ×4 (00:10→18:22)
[2018-07-25] MEDS: ASPIRIN PO SCH (10:10)
[2018-07-25] MEDS ORDERED: IMDUR PO SCH (11:00)
[2018-07-25] MEDS ORDERED: NORVASC PO SCH (11:00)
[2018-07-25] MEDS ORDERED: KEPPRA PO SCH (11:00)
--- NOTE | 2018-07-25 12:04 | Discharge Summary ---
Providers - Providers Date of Admission: 07/21/18 23:29 Attending physician: DAMEON ABDULLAHI MD 07/21/18 17:02 Consult to Case Management [CONS] Stat Services Needed at Discharge: Physical Therapy Occupational Therapy Veneer Grader Notified:: awaiting call back Additional Physician Instructions: Patient needs evaluation for physical therapy, occupational therapy for inability to ambulate Physical Therapy Evaluation and Treat [CONS] Stat Comment: Reason For Exam: patient is unable to walk Mode of Transport?: Wheelchair Weight bearing status?: Nonwt bearing 07/22/18 06:00 Consult to Physician [CONS] Routine Comment: Consulting Provider: ZULLY EWING Physician Instructions: Reason For Exam: WEAKNESS,INABILITY TO WALK,SUBACUTE HEAD CT RESULT Physical Therapy Evaluation and Treat [CONS] Routine Comment: Reason For Exam: WEAKNESS AND INABILITY TO WALK 07/22/18 06:37 Speech Therapy Evaluation and Treat [CONS] Routine Reason For Exam: WEAKNESS, SPEECH IMPAIRMENT 07/24/18 10:08 Consult to Physician [CONS] Routine Comment: Consulting Provider: A[place] Physician Instructions: Reason For Exam: esbl ecoli uti Primary care physician: PULVERIZER FEEDER Hospitalization Reason for admission: AMS Condition: Stable Hospital course: Patient is a 68-year-old female with past medical history of hypertension diabetes mellitus hypercholesterolemia and previous stroke. She is discharged from another hospital and had been at the nursing facility for the past week when she suddenly developed generalized weakness and inability to walk according to the facility staff. Further information is not available based on ER documentation the patient's daughter has stopped by the ER briefly and indicated that patient had been unable to walk for the past week well. Patient was noted on imaging to have a subacute CVA also additional work up showed UTI secondary to ECOLI ESBL which was started On merrem with improvement. ID recommended fosfomycin Considering no Stones on renal US. The finding of renal granuloma recommended outpatient renal work up Generalized weakness acute/subacute stroke Acute/subacute CVA Acute cystitis secondary to ECOLI ESBL Metabolic acidosis Acute Encephalopathy HTN DM ?Underlying dementia Disposition: DC/[place]-03 [facility] Time spent for discharge: 35 MINS Core Measure Documentation - Palliative Care Palliative Care/ Comfort Measures: Not Applicable - Core Measures Any of the following diagnoses?: stroke - VTE Discharge Requirements Deep Vein Thrombosis/Pulmonary Embolism Present on Admission: No - Stroke Discharge Requirements Statin for LDL = or >70 mg/dl on DC: Yes Anticoag for atrial fib/atrial flutter: Not Applicable Antithrombotic for ischemic stroke: Yes Exam - Physical Exam Narrative exam: VITAL SIGNS: Reviewed. GENERAL: The patient appeared well nourished and normally developed. Vital signs as documented. HEAD: No signs of head trauma. EYES: Pupils are equal. Extraocular motions intact. EARS: Hearing grossly intact. MOUTH: Oropharynx is normal. NECK: No adenopathy, no JVD. CHEST: Chest with clear breath sounds bilaterally. No wheezes, rales, or rhonchi. CARDIAC: Regular rate and rhythm. S1 and S2, without murmurs, gallops, or rubs. VASCULAR: No Edema. Peripheral pulses normal and equal in all extremities. ABDOMEN: Soft, without detectable tenderness. No sign of distention. No rebound or guarding, and no masses palpated. Bowel Sounds normal. MUSCULOSKELETAL: Good range of motion of all major joints. Extremities without clubbing, cyanosis or edema. NEUROLOGIC EXAM: Alert and oriented x 1. No focal sensory or strength deficits. Speech normal. Follows commands. PSYCHIATRIC: Mood normal. SKIN: No rash or lesions. Excessive outpouching on the left neck area. - Constitutional Vitals: Temp Pulse Resp BP Pulse Ox 98.0 F 102 H 20 163/89 100 07/25/18 06:11 07/25/18 06:11 07/25/18 06:11 07/25/18 06:11 07/25/18 06:11 Plan Activity: advance as tolerated, fall precautions Diet: low fat, low salt, diabetic Special Instructions: record daily BP diary, record blood sugar diary, physical therapy, occupational therapy Follow up with: PRIMARY MD DOUGLAS [Primary Care Provider] - 3-5 Days KHADIJAH PANIAGUA MD [Staff Physician] - 7 Days Prescriptions: Aspirin [Aspirin TAB] 325 mg PO QDAY #30 tablet Fosfomycin Tromethamine [Monurol] 3 gm PO DAILY #3 packet Fosfomycin Tromethamine [Monurol] 3 gm PO Q3D #3 packet
[2018-07-25] MEDS ORDERED: APRESOLINE PO SCH (14:00)
--- NOTE | 2018-07-25 17:53 | Progress Note ---
Assessment and Plan Assessment: 1) Complicated UTI: due to ESBL E coli. Renal US normal 2) Acute encephalopathy 3)Acute/subacute CVA 4)DM 5)HTN Plan: -continue meropenem D2 -upon discharge will do fosfomycin 3 g PO q3day x 3 doses - top case assembler please be sure patient local pharmacy carries fosfomycin and her insurance can afford for it. First dose can be given before d/c I am signing off Thank you for your consultation, will follow up with you. Mary Jane Stoddard MD Infectious Diseases Specialist [facility] ([facility]) M [phone] O [phone] Subjective Date of service: 07/25/18 Principal diagnosis: uti Interval history: feels better no fever Microbiology: Blood cultures: Urine cultures: 07/21 ESBL E coli Current Antimicrobials: meropenem 07/24 Previous Antimicrobials: Objective - Constitutional Vitals: Vital Signs Temp Pulse Resp BP Pulse Ox 98.4 F 100 H 20 137/79 98 07/25/18 16:54 07/25/18 16:54 07/25/18 16:54 07/25/18 16:54 07/25/18 16:54 Temperature -Last 24 Hours Temperature 98.4 F Temperature 99.0 F Temperature 98.0 F Temperature 98.4 F - Labs CBC & Chem 7: 07/24/18 08:12 07/24/18 08:12 Labs: Abnormal lab results 07/24/18 07/25/18 07/25/18 Range/Units 23:58 06:16 12:37 POC Glucose 202 H 190 H 242 H (70-105)
[2018-07-25 19:52] VITALS: BP 143/91
--- NOTE | 2018-07-25 20:11 | Magnetic Resonance Report ---
FINAL REPORT EXAM: MR BRAIN WO CON HISTORY: WEAKNESS,INABILITY TO WALK,ABNORMAL HEAD CT RESULT TECHNIQUE: Multiplanar MRI of the brain. No contrast administered. PRIORS: MRI brain, [address] brain, 21 July 2018. FINDINGS: Age-related volume loss. Band-like foci of diffusion-weighted bright signal along the right parafalcine frontal region, including probable corpus callosum extending to the right-sided genu, with concomitant ADC dark signal, new from comparison. Similar, restricted diffusion again noted in the left posteroinferior parieto-occipital region decreased in size and extent from comparison. Patchy foci of T2 and FLAIR bright signal in the periventricular and subcortical white matter are nonspecific, but may relate to chronic small vessel ischemic change. More focal areas of encephalomalacia and probable chronic ischemic change or infarcts again seen in left cerebral hemisphere, most pronounced in the left parieto-occipital region. Probable old lacunar infarct changes again noted in the left basal ganglia. No parenchymal mass, mass-effect, hemorrhage, midline shift or hydrocephalus. No pathologic extra-axial fluid collection. No pineal region or sellar masses. Empty sella appearance may be anatomic variant. No cerebellar tonsillar herniation. IMPRESSION: 1. Findings compatible with acute ischemic change or infarct in right parafalcine frontal region and corpus callosum, as well as possible acute on subacute/chronic ischemic change or infarct in left posteroinferior parieto-occipital region, as reported. 2. Chronic ischemic and atrophic changes.
== END 2018-07-25 19:45 | DRG 64 ==
LOC: ED 14:18 → 3A 23:29
PROVIDERS: ADMIT Internal Medicine; ATTEND Internal Medicine
DX: I63.9 Cerebral infarction, unspecified (principal); G93.40 Encephalopathy, unspecified; I26.99 Other pulmonary embolism without acute cor pulmonale; N30.00 Acute cystitis without hematuria; E87.2 Acidosis; B96.20 Unspecified Escherichia coli [E. coli] as the cause of diseases classified elsewhere; E11.9 Type 2 diabetes mellitus without complications; I10 Essential (primary) hypertension; K21.9 Gastro-esophageal reflux disease without esophagitis; F03.90 Unspecified dementia, unspecified severity, without behavioral disturbance, psychotic disturbance, mood disturbance, and anxiety; Z79.899 Other long term (current) drug therapy
CPT/HCPCS: 36415; 70450; 70551; 76770; 80048; 81001; 82550; 82962; 83735; 85027; 87076; 87086; 87186; 93005; 93010; 93306; 93880; A9270-GY; G8978-GP; G8979-GP; G8996-GN; G8997-GN; G8998-GN; J0696; J1815; J2185